=== PATIENT | male | born 1995 | race Caucasian/White ===

== ENCOUNTER 2019-04-30 20:37 | Emergency (ER) | payer OTHER, SELFPAY ==
[2019-04-30 20:38] VITALS: BP 156/85; PULSE 94; RESP 18; TEMP 36.7; O2SAT 97; BMI 37.5
--- NOTE | 2019-04-30 21:33 | ED.VISSUMM ---
- ER Visit Summary Date of Service: 04/30/19 Chief Complaint: Right ear pain History of Present Illness: The patient is a 23 M who presents with right ear pain that began today. Patient states the pain began rather suddenly this morning. Patient states pain is been constant throughout the day. Patient describes pain as stabbing, throbbing, and burning. Patient states nothing makes the pain better or worse. Patient states he has also had a nonproductive cough. Patient states he has had some nausea and diarrhea today. Patient denies any vomiting. Patient denies any chest pain or shortness of breath. Patient states he saw his primary care physician 2 days ago and was diagnosed with throat ulcers. Patient states he still has a sore throat. Patient did not have ear pain when he saw his primary care physician. Physical Examination: Vital signs are stable. Patient is afebrile. Patient is in no acute distress. Oral mucosa is pink and moist. Oropharynx is clear. The right tympanic membrane is erythematous. The left tympanic membrane is clear. Neck is supple. Trachea is midline. There is no JVD or lymphadenopathy noted. Heart was regular rate and rhythm. Lungs are clear and equal bilaterally. Cranial nerves II through XII are intact. There are no focal motor or sensory deficits noted. Emergency Department Course and Treatment: Patient was given a prescription for amoxicillin. Patient was instructed to follow-up with his primary care physician in 5 to 7 days. Patient was instructed to take Tylenol or ibuprofen as needed for pain. Patient understood and was agreeable with the plan. All questions were answered. Disposition: Discharge home Impression: Right otitis media This note was generated with [employer] dictation software. It may contain incorrect words, spelling, and punctuation that were not noted in review of the chart prior to signing ED Disposition - Plan for ED Patient: Disposition: Home or Assisted Living Diagnosis: Right acute otitis media Instructions: ED Otitis Media Acute Adult Prescriptions: Amoxicillin 500 mg PO TID #30 tab Referrals: NOT,DEFINED [Primary Care Provider] - 5-7 Days
--- NOTE | 2019-04-30 21:36 | ED.DCSUM_ITS ---
- ER Visit Summary Date of Service: 04/30/19 Chief Complaint: Right ear pain History of Present Illness: The patient is a 23 M who presents with right ear pain that began today. Patient states the pain began rather suddenly this morning. Patient states pain is been constant throughout the day. Patient de scribes pain as stabbing, throbbing, and burning. Patient states nothing makes the pain better or worse. Patient states he has also had a nonproductive cough. Patient states he has had some nausea and diarrhea today. Patient denies any vomiting. Patient denies any chest pain or shortness of breath. Patient states he saw his primary care physician 2 days ago and was diagnosed with throat ulce rs. Patient states he still has a sore throat. Patient did not have ear pain when he saw his primary care physician. Physical Examination: Vital signs are stable. Patient is afebrile. Patient is in no acute distress. Oral mucosa is pink and moist. Oropharynx is clear. The right tympanic membrane is erythematous. The left tympanic membrane is clear. Neck is supple. Trachea is midline. There is no JVD or lymphadenopathy noted. Heart was regular rate and rhythm. Lungs are clear and equal bilaterally. Cranial nerves II through XII are intact. There are no focal motor or sensory deficits noted. Emergency Department Course and Treatment: Patient was given a prescription for amoxicillin. Patient was instructed to follow-up with his primary care physician in 5 to 7 days. Patient was instructed to take Tylenol or ibuprofen as needed for pain. Patient understood and was agreeable with the plan. All questions were answered. Disposition: Discharge home Impression: Right otitis media This note was generated with [employer] dictation software. It may contain incorrect words, spelling, and punctuation that were not noted in review of the chart prior to signing ED Disposition - Plan for ED Patient: Disposition: Home or Assisted Living Diagnosis: Right acute otitis media Instructions: ED Otitis Media Acute Adult Prescriptions: Amoxicillin 500 mg PO TID #30 tab Referrals: NOT,DEFINED [Primary Care Provider] - 5-7 Days
[2019-04-30] MEDS: Ibuprofen 400 MG Tablet 800 MG PO (21:40)
[2019-04-30] MEDS: AMOXICILLIN 500 MG CAPSULE PO (21:40)
== END 2019-04-30 21:50 | disposition home or self-care (01) ==
LOC: ED 21:47
PROVIDERS: Emergency Provider Emergency Medicine
DX: H66.91 Otitis media, unspecified, right ear (principal); R51 Headache; M54.2 Cervicalgia; R19.7 Diarrhea, unspecified; R05 Cough; J02.9 Acute pharyngitis, unspecified
CPT/HCPCS: 99283

== ENCOUNTER → 2021-08-21 10:47 | Outpatient (CLI) | payer OTHER, SELFPAY ==
[2021-08-21 12:17] LABS: Absolute Lymphocyte Count 3.54 X10^3/uL (0.83-4.51); Absolute Neutrophil Count 9.6 X10^3/uL (2.0-7.7); Basophil# 0.07 X10^3/uL; Basophil% 0.5 % (0-1); Eosinophil# 0.08 X10^3/uL; Eosinophils% 0.6 % (0-5); Hematocrit 40.9 % (40-54); Hemoglobin 12.5 g/dL (13.0-16.5); Lymphocyte # 3.54 X10^3/ul (0.83-4.51); Lymphocyte % 24.6 % (19-41); Mean Corp Hgb Conc 30.6 g/dL (32-36); Mean Corpuscular Hgb 19.3 pg (27.0-32.0); Monocyte# 0.96 X10^3/uL; Monocyte% 6.7 % (0-10); NRBC Flagged by Analyzer 0 % (0-5); Neutrophil # 9.59 X10^3/uL (2.7-7.7); Neutrophil % 66.6 % (47-70); Platelet Count 224 K/mm3 (150-450); RBC Distribution Width CV 17.2 % (11.6-14.6); RBC Distribution Width SD 33.5 fl (35.1-43.9); Red Blood Count 6.49 M/mm3 (4.6-6.2); White Blood Count 14.4 K/mm3 (4.4-11.0)
[2021-08-21 12:40] LABS: ALB/GLOB Ratio 1.1 RATIO (0.9-2.4); AST(SGOT) 19 U/L (15-37); Alanine Aminotransfer ALT/SGPT 58 U/L (16-61); Alkaline Phosphatase 73 U/L (45-117); Anion Gap 6 (5-15); BUN 14 mg/dL (7-18); BUN/Creat Ratio 18.4 RATIO (10-20); Calcium,Total 8.6 mg/dL (8.5-10.1); Chloride 105 mmol/L (98-107); Cholesterol 98 mg/dL (200); Creatinine, Serum 0.76 mg/dL (0.70-1.30); EST Glomerular Filtration Rate 130 mL/min (>60); Est Glom Filt Rate - Afr Amer 158 mL/min (>60); Globulin 3.5 g/dL (2.2-4.2); Glucose 127 mg/dL (74-106); High Density Lipoprotein 35 mg/dL; Potassium 4.3 mmol/L (3.5-5.1); Protein, Total 7.5 g/dL (6.4-8.2); Sodium Level 137 mmol/L (136-145); Thyroid Stim Hormone (TSH) 0.73 uIU/mL (0.358-3.74); Triglycerides 88 mg/dL; Very Low Density Lipoprotein 18 mg/dL (5-40)
[2021-08-22 15:20] LABS: Hemoglobin A1c 5.5 % (3.8-5.6)
[2021-08-22 17:04] LABS: Ferritin 592 ng/mL (26-388); Iron 87 ug/dL (65-175); Iron Binding Capacity,Total 212 ug/dL (250-450)
[2021-08-22 17:13] LABS: Vitamin B12 510 pg/mL (211-911)
[2021-08-25 13:58] LABS: Pathologist Review Reviewed
== END ==
PROVIDERS: PCP Family Medicine; Referring Provider Family Medicine; Visit Provider Family Medicine
DX: Z00.00 Encounter for general adult medical examination without abnormal findings (principal); D50.9 Iron deficiency anemia, unspecified; R73.09 Other abnormal glucose; D72.829 Elevated white blood cell count, unspecified; E66.9 Obesity, unspecified
CPT/HCPCS: 36415; 80053; 80061; 82607; 82728; 83036; 83540; 83550; 84443; 85025

== ENCOUNTER 2021-09-12 14:35 | Emergency (ER) | payer OTHER, SELFPAY ==
[2021-09-12] VITALS (11 sets, daily range): BP systolic 134–156; BP diastolic 84–106; PULSE 111–119; RESP 16–47; TEMP 36.9–39.5; O2SAT 88–97; BMI 38.0
--- NOTE | 2021-09-12 16:05 | RAD_ITS ---
STUDY: X-RAY CHEST REASON FOR EXAM: Male, 25 years old. Cough TECHNIQUE: Frontal view COMPARISON: None. FINDINGS: The lungs are not fully expanded. Bilateral patchy infiltrates. Normal size heart. Normal mediastinum and stacey. Normal visualized pulmonary arteries. Normal visualized aortic arch and descending thoracic aorta. Normal visualized thoracic spine. Normal visualized ribs, clavicles, and shoulders. There is no demonstrated abnormality of the visualized soft tissue structures of the upper abdomen. RAD/Chest 1 View (Portable) IMPRESSION: Bilateral patchy infiltrates. Electronically Signed: Jonas Chiu DO at 20:55 EDT Tel [phone], Service support ,
--- NOTE | 2021-09-12 16:05 | EKG12_ITS ---
Test Reason : SOB Blood Pressure : / mmHG Vent. Rate : 118 BPM Atrial Rate : 118 BPM P-R Int : 146 ms QRS Dur : 084 ms QT Int : 300 ms P-R-T Axes : 014 007 007 degrees QTc Int : 420 ms Sinus tachycardia Otherwise normal ECG Confirmed by CURT HERNANDEZ, CHIP ([id number]), assignment desk editor PINA GREEN ([id number]) on 09/16/2021 8:40:35 AM Referred By: YASH Confirmed By:CHIP ELIAS MD
--- NOTE | 2021-09-12 16:06 | CT_ITS ---
STUDY: CTA CHEST REASON FOR EXAM: Male, 25 years old. Hypoxia and Covid RADIATION DOSAGE (If Supplied By Facility): CTDIvol = ( 12.66 ) mGy, DLP = ( 426.16 ) mGycm TECHNIQUE: The examination was performed with the intravenous administration of IV 100mL Isovue-370. Post-processing of the angiographic images was performed, with multiplanar reformation and 3D reconstruction. Individualized dose optimization techniques were used for this CT. COMPARISON: None. FINDINGS: Examination is technically limited due to suboptimal enhancement of the pulmonary artery and elevated image noise obscuring details of smaller arteries. There is no large pulmonary embolism in the main, right or left pulmonary arteries. Lobar and segmental arteries are not evaluable. There is extensive multifocal viral pneumonia with nodular and regional ground glass opacities. Pulmonary volumes are very low. There is no pneumothorax, pulmonary edema or pleural effusions. Mediastinal contents are normal. Osseous structures are intact. Liver is enlarged and fatty infiltrated. Spleen is at least moderately enlarged. However, abdominal structures are incompletely visualized. CT/CTA Chest W/WO Contrast IMPRESSION: 1. Technically limited study. 2. No large central pulmonary embolism. 3. Recommend ultrasonography of the lower extremity venous system for further risk stratification. If lower activity veins are free of DVT repeat chest imaging is optional. 4. Severe Covid pneumonia. 5. Hepatosplenomegaly and hepatic steatosis. General medical/laboratory evaluation advised. This does not require dedicated imaging. Electronically Signed: Sonya Santiago MD at 17:58 EDT Tel , Service support ,
--- NOTE | 2021-09-12 16:07 | EDS_ITS ---
HPI History of Present Illness Chief Complaint: Shortness of Breath Narrative Narrative: 25-year-old male with no reported medical problems presenting on day 7 of COVID-19 symptoms. He reports a fever as high as 102 which responds to Tylenol and ibuprofen. He has body aches and chills. Intermittently he is having nausea and diarrhea. Patient was initially referred for monoclonal antibodies however now he notes that his O2 sats are 89% at home. He states he was taking too long to get set up via his primary care physician and [facility] where he tested positive the other day. Patient describes a lot of dyspnea on exertion as well. He does not have alden chest pain. PFSH PFSH Medical History no medical history Home Medications dexamethasone [Decadron] 6 mg PO DAILY #7 tab 09/12/21 [Rx Last Taken Unknown] ondansetron 4 mg PO Q8H PRN PRN #20 tab 09/12/21 [Rx Last Taken Unknown] Allergy/AdvReac Type Severity Reaction Status Date / Time No Known Allergies Allergy Verified 09/12/21 14:37 Social History Smoking Status: Unknown if ever smoked ROS ROS ED Constitutional Constitutional ED: Reports chills and fever(s) Eyes Eyes: Denies blurry vision or diplopia ENT ENT ED: Denies rhinorrhea or sore throat Cardiovascular Cardiovascular: Reports palpitations and racing heartbeat Respiratory/Chest Respiratory/Chest: Reports cough, dyspnea and dyspnea on exertion Gastrointestinal Gastrointestinal: Reports diarrhea and nausea; Denies abdominal pain Genitourinary Genitourinary ED: Denies dysuria or hematuria Musculoskeletal Musculoskeletal: Reports myalgias; Denies arthralgias or neck pain Integumentary Denies Abrasions or rash Neurologic Neurologic: Denies headache(s) or paresthesias EXAM Physical Exam Const Vital Signs: 09/12/21 14:37 09/12/21 15:41 09/12/21 15:43 Temperature 98.4 F Temperature Source Temporal Pulse Rate 113 H Respiratory Rate 18 Respiratory Effort Blood Pressure 150/85 H Blood Pressure Mean 106 Pulse Ox 94 92 94 Oxygen Delivery Method Room Air Room Air Room Air Oxygen Flow Rate (L/min) 09/12/21 15:46 09/12/21 15:47 09/12/21 16:03 Temperature 98.9 F Temperature Source Temporal Pulse Rate 114 H Respiratory Rate 47 H Respiratory Effort Short of Breath Labored Blood Pressure 156/106 H Blood Pressure Mean 122 Pulse Ox 94 88 Oxygen Delivery Method Room Air Room Air Room Air Oxygen Flow Rate (L/min) 09/12/21 17:43 09/12/21 18:11 09/12/21 18:47 Temperature 103.1 F H 100 F H Temperature Source Oral Oral Pulse Rate 119 H 115 H Respiratory Rate 30 H 17 Respiratory Effort Blood Pressure 139/95 H 143/89 H 134/93 H Blood Pressure Mean 109 107 106 Pulse Ox 93 92 Oxygen Delivery Method Nasal Cannula Nasal Cannula Oxygen Flow Rate (L/min) 2 2 09/12/21 19:06 Temperature 100 F H Temperature Source Oral Pulse Rate 111 H Respiratory Rate 16 Respiratory Effort Blood Pressure 138/84 H Blood Pressure Mean 102 Pulse Ox 93 Oxygen Delivery Method Nasal Cannula Oxygen Flow Rate (L/min) 2 Positive well nourished General Appearance ED: NAD; Negative for pallor HEENT Reports moist mucous membranes atraumatic Eyes PERRL and EOMs intact bilaterally General Eye ED: Negative for scleral icterus Neck supple Resp normal respiratory effort and clear to auscultation bilaterally GI non-tender and non-distended Auscultation: normoactive bowel sounds Palpation: soft Neuro oriented x3, CN's II-XII intact bilaterally and no sensory deficits noted Sensorium / Orientation: alert Motor Exam: strength 5/5 throughout Psych mental status grossly normal Thought Process: normal thought process Skin General Skin Exam: Negative for jaundice or pallor MDM MDM MDM Narrative Medical decision making narrative: Patient arriving on day 7 of COVID-19 symptoms. He noted that he was 89% home. Here he is 88 to 94% on room air. I did get him up and ambulate him at the bedside and he maintain a sat of 88% for about 1 minute. He was very dyspneic. When he sat down he was very briefly 85% and then his O2 saturations came back up to 91-93. He denies any chest pain with this episode. Will obtain blood work and imaging as well as EKG. I suspect that likely the patient will ultimately be discharged home with oxygen. Patient was given dexamethasone and Zofran. Patient has no leukocytosis. Renal function electrolytes are normal. LFTs are normal. Lactic acid is 2. Chest x- ray on my interpretation shows bilateral pulmonary infiltrates and the radiologist does agree. EKG is sinus tachycardia with a ventricular rate of 118 bpm without sign of ischemic change on my interpretation. Patient ambulated on 2 L of oxygen and maintained O2 saturations in the mid 90s. Chest CTA does not show any central pulmonary emboli but is nondiagnostic laterally. Given the patient does not have any calf pain or swelling and does not have any chest pain I feel like peripheral pulmonary emboli are unlikely. Radiologist does read the severe Covid pneumonia. Since patient is ambulatory with good pulse oximeter readings I feel he is stable to be discharged home. Patient will monitor his pulse ox at home. He was given a prescription for dexamethasone. I had a discussion at length with him signs and symptoms which warrant return to the ED. Impression: 1. COVID-19 pneumonitis 2. Hypoxic respiratory failure Lab Data Labs: Laboratory Results - last 24 hr 09/12/21 09/12/21 09/12/21 16:20 16:20 16:45 WBC 10.1 RBC 6.59 H Hgb 12.5 L Hct 39.9 L MCV 60.5 L MCH 19.0 L MCHC 31.3 L RDW Std Deviation 31.5 L RDW Coeff of Carlos Alberto 16.1 H Plt Count 121 L Immature Gran % (Auto) 0.800 Neut % (Auto) 79.3 H Lymph % (Auto) 12.8 L [place] % (Auto) 6.8 Eos % (Auto) 0.2 Baso % (Auto) 0.1 Absolute Neuts (auto) 8.0 H Absolute Lymphs (auto) 1.29 Nucleated RBC % 0 Platelet Estimate ADEQUATE RBC Morphology NORM C+C Sodium 132 L Potassium 4.1 Chloride 102 Carbon Dioxide 23.0 Anion Gap 7 BUN 13 Creatinine 0.84 Estim Creat Clear Calc 127.80 Est GFR (MDRD) Af Amer 139 Est GFR (MDRD) Non-Af 115 BUN/Creatinine Ratio 15.4 Glucose 135 H Lactic Acid 2.0 Calcium 8.6 Total Bilirubin 0.80 AST 33 ALT 22 Alkaline Phosphatase 48 Total Protein 7.8 Albumin 3.4 Globulin 4.4 H Albumin/Globulin Ratio 0.8 L Procalcitonin 09/12/21 16:45 WBC RBC Hgb Hct MCV MCH MCHC RDW Std Deviation RDW Coeff of Carlos Alberto Plt Count Immature Gran % (Auto) Neut % (Auto) Lymph % (Auto) [place] % (Auto) Eos % (Auto) Baso % (Auto) Absolute Neuts (auto) Absolute Lymphs (auto) Nucleated RBC % Platelet Estimate RBC Morphology Sodium Potassium Chloride Carbon Dioxide Anion Gap BUN Creatinine Estim Creat Clear Calc Est GFR (MDRD) Af Amer Est GFR (MDRD) Non-Af BUN/Creatinine Ratio Glucose Lactic Acid Calcium Total Bilirubin AST ALT Alkaline Phosphatase Total Protein Albumin Globulin Albumin/Globulin Ratio Procalcitonin 0.58 H Radiography Diagnostic Testing: Clinical Impression(s) from Imaging Studies Chest X-Ray 09/12/21 16:05 IMPRESSION: Bilateral patchy infiltrates. Electronically Signed: Jonas Chiu DO at 20:55 EDT Tel [phone], Service support , Chest CTA 09/12/21 16:06 IMPRESSION: 1. Technically limited study. 2. No large central pulmonary embolism. 3. Recommend ultrasonography of the lower extremity venous system for further risk stratification. If lower activity veins are free of DVT repeat chest imaging is optional. 4. Severe Covid pneumonia. 5. Hepatosplenomegaly and hepatic steatosis. General medical/laboratory evaluation advised. This does not require dedicated imaging. Electronically Signed: Sonya Santiago MD at 17:58 EDT Tel , Service support , Discharge Plan Triage Chief Complaint: Shortness of Breath ED Provider: Darian Mathew Dx/Rx/DC Orders Instructions: Coronavirus Disease 2019 (COVID-19): Caring for Yourself or Others Prescriptions: New dexamethasone [Decadron] 6 mg tablet 6 mg PO DAILY Qty: 7 RF: 0 ondansetron 4 mg tablet,disintegrating 4 mg PO Q8H PRN PRN (Reason: Nausea) Qty: 20 RF: 0 Primary Care Provider: Jonathan Reed Referrals: Jonathan Reed MD [Primary Care Provider] - Disposition Disposition: Home, Self Care Discharge Date/Time: 09/12/21 20:39
[2021-09-12 16:32] LABS: Absolute Lymphocyte Count 1.29 X10^3/uL (0.83-4.51); Basophil# 0.01 X10^3/uL; Basophil% 0.1 % (0-1); Eosinophil# 0.02 X10^3/uL; Eosinophils% 0.2 % (0-5); Hematocrit 39.9 % (40-54); Hemoglobin 12.5 g/dL (13.0-16.5); Lymphocyte # 1.29 X10^3/ul (0.83-4.51); Lymphocyte % 12.8 % (19-41); Mean Corp Hgb Conc 31.3 g/dL (32-36); Mean Corpuscular Volume 60.5 fL (80-94); Monocyte# 0.69 X10^3/uL; Monocyte% 6.8 % (0-10); NRBC Flagged by Analyzer 0 % (0-5); Neutrophil # 7.99 X10^3/uL (2.7-7.7); Neutrophil % 79.3 % (47-70); POSITIVE COUNT YES; Platelet Count 121 K/mm3 (150-450); RBC Distribution Width CV 16.1 % (11.6-14.6); RBC Distribution Width SD 31.5 fl (35.1-43.9); Red Blood Count 6.59 M/mm3 (4.6-6.2); White Blood Count 10.1 K/mm3 (4.4-11.0)
[2021-09-12 16:33] LABS: Differential Indicated SCAN CRITERIA MET
[2021-09-12 16:53] LABS: Platelet Estimate ADEQUATE (ADEQ); Red Cell Morphology NORM C+C NORMAL (NORM C&C)
[2021-09-12] MEDS: dexAMETHasone 10 MG/ML Vial 6 MG IV (16:59)
[2021-09-12] MEDS: Ondansetron 4 MG/2 ML Vial IV (16:59)
[2021-09-12 17:02] LABS: ALB/GLOB Ratio 0.8 RATIO (0.9-2.4); AST(SGOT) 33 U/L (15-37); Alanine Aminotransfer ALT/SGPT 22 U/L (16-61); Albumin, Serum 3.4 g/dL (3.2-5.0); Alkaline Phosphatase 48 U/L (45-117); Anion Gap 7 (5-15); BUN 13 mg/dL (7-18); BUN/Creat Ratio 15.4 RATIO (10-20); Calcium,Total 8.6 mg/dL (8.5-10.1); Chloride 102 mmol/L (98-107); Creatinine, Serum 0.84 mg/dL (0.70-1.30); EST Glomerular Filtration Rate 115 mL/min (>60); Est Glom Filt Rate - Afr Amer 139 mL/min (>60); Globulin 4.4 g/dL (2.2-4.2); Glucose 135 mg/dL (74-106); Potassium 4.1 mmol/L (3.5-5.1); Protein, Total 7.8 g/dL (6.4-8.2); Sodium Level 132 mmol/L (136-145)
[2021-09-12 17:21] LABS: Procalcitonin 0.58 ng/mL (0.00-0.09)
[2021-09-12] MEDS: Acetaminophen 500 MG Tablet 1000 MG PO (17:52)
--- NOTE | 2021-09-12 20:08 | CM.ED ---
SOCIAL WORK Referral Source: Dr. Mathew Reason for Consult: COVID positive, requires home O2 Patient lives home with . Patient requires 2L O2 for home going. COVID positive test result obtained. Patient gave approval for O2 needs to be set up through [employer]. Patient reports has pulse ox at home. Call to [employer] after hours and faxed all required information to [employer]. RT notified to review O2 needs with patient. Case Management notified via e-mail for follow up. [facility] Quickscript added to chart for medical records. Plan: Home with home O2 Giovanna Mir MSW, CHILD SUPPORT AGENT
[2021-09-12 20:54] LABS: Reflex Lactate? Y
--- NOTE | 2021-09-15 11:00 | CASEMGMT ---
ED Home oxygen follow-up: Patient states he is having a rough time at times, continues to wear oxygen, running around 92-93% on the 2L. Patient taking meds as prescribed. Pt states he has an appt with his PCP tomorrow, . Encouraged the patient to keep his appt and discussed s/s to return to ER. Pt verbalized understanding. Patient had no further questions or concerns at this time.
== END 2021-09-12 20:39 | disposition home or self-care (01) ==
PROVIDERS: Emergency Provider Student in an Organized Health Care Education/Training Program; PCP Family Medicine
DX: U07.1 COVID-19 (principal); J12.82 Pneumonia due to coronavirus disease 2019; K76.0 Fatty (change of) liver, not elsewhere classified; J96.91 Respiratory failure, unspecified with hypoxia; Z79.52 Long term (current) use of systemic steroids
CPT/HCPCS: 71045; 71275; 80053; 83605; 84145; 85025; 87040; 87149; 87426; 93005; 96374; 96375; 99285; Q9967; A4216; J2405

== ENCOUNTER → 2021-09-26 12:01 | Outpatient (CLI) | payer OTHER, SELFPAY ==
--- NOTE | 2021-09-26 12:05 | RAD_ITS ---
STUDY: X-RAY CHEST REASON FOR EXAM: Male, 25 years old. COVID19 TECHNIQUE: PA and lateral views of the chest. COMPARISON: 09/12/2021 FINDINGS: EKG leads project over the chest. Multilobar pulmonary infiltrates evident on the prior CT have largely resolved. There is no demonstrated pleural abnormality. Normal size heart. Normal mediastinum and stacey. Normal visualized pulmonary arteries. Normal visualized aortic arch and descending thoracic aorta. Normal visualized thoracic spine. Normal visualized ribs, clavicles, and shoulders. There is no demonstrated abnormality of the visualized soft tissue structures of the upper abdomen. RAD/Chest PA and Lateral IMPRESSION: Near-complete resolution of multilobar infiltrates. Electronically Signed: Mau Vila MD (Brooks) at 16:21 EDT , Service support ,
== END ==
PROVIDERS: PCP Family Medicine; Referring Provider Family Medicine; Visit Provider Family Medicine
DX: U07.1 COVID-19 (principal)
CPT/HCPCS: 71046

== ENCOUNTER 2022-08-21 16:04 | Outpatient (CLI) | payer OTHER, SELFPAY ==
[2022-08-21 18:01] LABS: Absolute Lymphocyte Count 2.98 X10^3/uL (0.83-4.51); Absolute Neutrophil Count 10.9 X10^3/uL (2.0-7.7); Basophil# 0.09 X10^3/uL; Basophil% 0.6 % (0-1); Eosinophil# 0.04 X10^3/uL; Eosinophils% 0.3 % (0-5); Hematocrit 40.7 % (40-54); Hemoglobin 12.5 g/dL (13.0-16.5); Lymphocyte # 2.98 X10^3/ul (0.83-4.51); Lymphocyte % 19.9 % (19-41); Mean Corp Hgb Conc 30.7 g/dL (32-36); Mean Corpuscular Hgb 19.4 pg (27.0-32.0); Mean Corpuscular Volume 63.3 fL (80-94); Monocyte# 0.91 X10^3/uL; Monocyte% 6.1 % (0-10); NRBC Flagged by Analyzer 0.1 % (0-5); Neutrophil # 10.89 X10^3/uL (2.7-7.7); Neutrophil % 72.5 % (47-70); Platelet Count 220 K/mm3 (150-450); RBC Distribution Width CV 17.6 % (11.6-14.6); RBC Distribution Width SD 34.5 fl (35.1-43.9); Red Blood Count 6.43 M/mm3 (4.6-6.2)
[2022-08-21 18:22] LABS: Vitamin B12 393 pg/mL (211-911)
[2022-08-21 18:53] LABS: Hemoglobin A1c 5.3 % (3.8-5.6)
[2022-08-21 19:01] LABS: ALB/GLOB Ratio 1.5 RATIO (0.9-2.4); AST(SGOT) 31 U/L (15-37); Alanine Aminotransfer ALT/SGPT 57 U/L (16-61); Albumin, Serum 4.5 g/dL (3.2-5.0); Alkaline Phosphatase 63 U/L (45-117); Anion Gap 8 (5-15); BUN 13 mg/dL (7-18); BUN/Creat Ratio 16.3 RATIO (10-20); Calcium,Total 9.2 mg/dL (8.5-10.1); Chloride 104 mmol/L (98-107); Cholesterol 107 mg/dL (200); EST Glomerular Filtration Rate 122 mL/min (>60); Est Glom Filt Rate - Afr Amer 148 mL/min (>60); Ferritin 484 ng/mL (26-388); Globulin 3.1 g/dL (2.2-4.2); Glucose 77 mg/dL (74-106); High Density Lipoprotein 32 mg/dL; Iron 63 ug/dL (65-175); Iron Binding Capacity,Total 222 ug/dL (250-450); Potassium 3.8 mmol/L (3.5-5.1); Protein, Total 7.6 g/dL (6.4-8.2); Sodium Level 139 mmol/L (136-145); Triglycerides 64 mg/dL; Very Low Density Lipoprotein 13 mg/dL (5-40)
== END 2022-08-21 23:59 | disposition home or self-care (01) ==
LOC: MFPLAB 16:07
PROVIDERS: PCP Family Medicine; Referring Provider Family Medicine; Visit Provider Family Medicine
DX: Z00.00 Encounter for general adult medical examination without abnormal findings (principal)
CPT/HCPCS: 36415; 80053; 80061; 82607; 82728; 82746; 83036; 83540; 83550; 85025

== ENCOUNTER 2022-08-27 09:58 | Outpatient (CLI) | payer OTHER, SELFPAY ==
[2022-08-27 15:32] LABS: Absolute Lymphocyte Count 2.76 X10^3/uL (0.83-4.51); Absolute Neutrophil Count 6.9 X10^3/uL (2.0-7.7); Basophil# 0.07 X10^3/uL; Basophil% 0.7 % (0-1); Eosinophil# 0.15 X10^3/uL; Eosinophils% 1.4 % (0-5); Hematocrit 40.8 % (40-54); Hemoglobin 12.2 g/dL (13.0-16.5); Lymphocyte # 2.76 X10^3/ul (0.83-4.51); Lymphocyte % 25.8 % (19-41); Mean Corp Hgb Conc 29.9 g/dL (32-36); Mean Corpuscular Hgb 19.2 pg (27.0-32.0); Mean Corpuscular Volume 64.2 fL (80-94); Monocyte# 0.78 X10^3/uL; Monocyte% 7.3 % (0-10); NRBC Flagged by Analyzer 0.2 % (0-5); Neutrophil # 6.88 X10^3/uL (2.7-7.7); Neutrophil % 64.1 % (47-70); Platelet Count 214 K/mm3 (150-450); RBC Distribution Width CV 17.9 % (11.6-14.6); RBC Distribution Width SD 35.4 fl (35.1-43.9); Red Blood Count 6.36 M/mm3 (4.6-6.2); White Blood Count 10.7 K/mm3 (4.4-11.0)
[2022-08-27 15:35] LABS: Differential Indicated SCAN CRITERIA MET
[2022-08-27 15:51] LABS: Differential Comment SCANNED
[2022-08-28 13:12] LABS: Pathologist Review Reviewed
== END 2022-08-27 23:59 | disposition home or self-care (01) ==
PROVIDERS: PCP Family Medicine; Referring Provider Family Medicine; Visit Provider Family Medicine
DX: Z00.00 Encounter for general adult medical examination without abnormal findings (principal)
CPT/HCPCS: 36415; 83021; 85025; 85660

== ENCOUNTER → 2023-02-17 | Outpatient (CLI) | payer OTHER, SELFPAY ==
[2023-02-17 12:27] LABS: Absolute Lymphocyte Count 2.62 X10^3/uL (0.83-4.51); Absolute Neutrophil Count 7.8 X10^3/uL (2.0-7.7); Basophil# 0.07 X10^3/uL; Basophil% 0.6 % (0-1); Eosinophil# 0.11 X10^3/uL; Hematocrit 41.7 % (40-54); Hemoglobin 12.4 g/dL (13.0-16.5); Lymphocyte # 2.62 X10^3/ul (0.83-4.51); Lymphocyte % 22.8 % (19-41); Mean Corp Hgb Conc 29.7 g/dL (32-36); Mean Corpuscular Volume 64.1 fL (80-94); Monocyte# 0.81 X10^3/uL; NRBC Flagged by Analyzer 0.2 % (0-5); Neutrophil # 7.81 X10^3/uL (2.7-7.7); Neutrophil % 67.9 % (47-70); Platelet Count 192 K/mm3 (150-450); RBC Distribution Width CV 17.9 % (11.6-14.6); RBC Distribution Width SD 35.3 fl (35.1-43.9); Red Blood Count 6.51 M/mm3 (4.6-6.2); White Blood Count 11.5 K/mm3 (4.4-11.0)
[2023-02-17 12:51] LABS: ALB/GLOB Ratio 1.5 RATIO (0.9-2.4); AST(SGOT) 11 U/L (15-37); Alanine Aminotransfer ALT/SGPT 34 U/L (16-61); Albumin, Serum 4.2 g/dL (3.2-5.0); Alkaline Phosphatase 55 U/L (45-117); Anion Gap 6 (5-15); BUN 18 mg/dL (7-18); BUN/Creat Ratio 24.7 RATIO (10-20); Calcium,Total 9.5 mg/dL (8.5-10.1); Chloride 110 mmol/L (98-107); Cholesterol 92 mg/dL (200); Creatinine, Serum 0.73 mg/dL (0.70-1.30); EST Glomerular Filtration Rate 135 mL/min (>60); Est Glom Filt Rate - Afr Amer 164 mL/min (>60); Globulin 2.8 g/dL (2.2-4.2); Glucose 93 mg/dL (74-106); High Density Lipoprotein 35 mg/dL; Magnesium 2.3 mg/dL (1.6-2.6); Potassium 4.4 mmol/L (3.5-5.1); Sodium Level 144 mmol/L (136-145); Triglycerides 59 mg/dL; Very Low Density Lipoprotein 12 mg/dL (5-40)
[2023-02-18 16:10] LABS: Endomysial Antibody IgA Negative (Negative)
[2023-02-18 20:24] LABS: Immunoglobulin A 140 mg/dL (90-386); t-Transglutaminase IgA <2 U/mL (0-3)
== END | disposition home or self-care (01) ==
LOC: MFPLAB 09:32
PROVIDERS: PCP Family Medicine; Referring Provider Family Medicine; Visit Provider Family Medicine
DX: D56.3 Thalassemia minor (principal); E66.9 Obesity, unspecified; R19.7 Diarrhea, unspecified
CPT/HCPCS: 36415; 80053; 80061; 82784; 83516; 83735; 85025; 86255

== ENCOUNTER 2023-08-17 09:25 | Outpatient (CLI) | payer OTHER, SELFPAY ==
--- OUTSIDE RECORDS SUMMARY | 2023-08-17 09:56 | XMS RPT_ITS | CCD ---
Author Name Unknown Address [address] [place] [id number] Organization [facility] Care Team Providers Care Athletic Scout Name Role Phone PROVIDER, UNKNOWN Unavailable Unavailable PROVIDER, UNKNOWN Unavailable Unavailable YAAKOV ACUNA Unavailable Unavailable PROVIDER, UNKNOWN Unavailable Unavailable PROVIDER, UNKNOWN Unavailable Unavailable ED WILLIS) Unavailable Unavailabl e Problems Problem Classification Problem Date Documented Da te Episodic/Chronic Other lower respiratory disease (1 source) Cough; Translations: [Cough] Onset: 08-17-2018 Episodic Results Test Name Value Interpretation Reference Range Facil ity Encounters Encounter Date Encounter Type Care Provider Facility Start: 08-17-2018 End: 08-18-2018 Patient encounter ED DORSEY) LAZARO [facility] Start: 09-13-2017 End: 09-13-2017 Ambulatory UNKNOWN PROVIDER Facility:[facility] Start: 08-16-2017 End: 08-16-2017 Ambulatory UNKNOWN PROVIDER Facility:[facility] Payers Date Payer Category Payer Unknown [id number] Summary Purpose Family History No Family History Records FoundNo Family History Records FoundNo Family History Records Found Advance Directives No Advanced Directives Records FoundNo Advanced Directives Records FoundNo Advanced Directives Records Found Additional Source Comments (unrecognized sect ion and content) No Status Records FoundNo Status Records FoundNo Status Records Found INFORMATION SOURCE (unrecogn ized section and content) DATE CREATED AUTHOR AUTHOR'S ORGANIZ ATION 09/14/2018 [facility] DATE CREATED AUTHOR AUTHOR'S ORGANIZ ATION 09/25/2018 [employer] FOR RECORDS PERTAINING TO PATIENTS WHO ARE OR HAVE BEEN ENROLLED IN A CHEMICAL DEPENDENCY/SUBSTANCEABUSE PROGRAM, SOME INFORMATION MAY BE OMITTED. This clinical summary was aggregated from multiple sources. Caution should be exercised in using it in the provision of clinical care. This summary normalizes information from multiple sources, and as a consequence, information in this document may materially change the coding, format and clinical context of patient data. In addition, data may be omitted in some cases. CLINICAL DECISIONS SHOULD BE BASED ON THE PRIMARY CLINICAL RECORDS. [facility] [employer] [facility]. provides no warranty or guarantee of the accuracy or completeness of information in this document.
[2023-08-17 12:20] LABS: Absolute Lymphocyte Count 3.36 X10^3/uL (0.83-4.51); Absolute Neutrophil Count 7.5 X10^3/uL (2.0-7.7); Basophil# 0.07 X10^3/uL; Basophil% 0.6 % (0-1); Eosinophil# 0.12 X10^3/uL; Hematocrit 43.2 % (40-54); Hemoglobin 12.9 g/dL (13.0-16.5); Lymphocyte # 3.36 X10^3/ul (0.83-4.51); Lymphocyte % 27.8 % (19-41); Mean Corp Hgb Conc 29.9 g/dL (32-36); Mean Corpuscular Hgb 19.1 pg (27.0-32.0); Monocyte# 0.77 X10^3/uL; Monocyte% 6.4 % (0-10); NRBC Flagged by Analyzer 0 % (0-5); Neutrophil # 7.54 X10^3/uL (2.7-7.7); Neutrophil % 62.3 % (47-70); Platelet Count 198 K/mm3 (150-450); RBC Distribution Width CV 17.4 % (11.6-14.6); RBC Distribution Width SD 33.3 fl (35.1-43.9); Red Blood Count 6.75 M/mm3 (4.6-6.2); White Blood Count 12.1 K/mm3 (4.4-11.0)
[2023-08-17 12:39] LABS: ALB/GLOB Ratio 1.3 RATIO (0.9-2.4); AST(SGOT) 13 U/L (15-37); Alanine Aminotransfer ALT/SGPT 48 U/L (16-61); Albumin, Serum 4.1 g/dL (3.2-5.0); Alkaline Phosphatase 65 U/L (45-117); Anion Gap 4 (5-15); BUN 15 mg/dL (7-18); BUN/Creat Ratio 17.8 RATIO (10-20); Calcium,Total 8.5 mg/dL (8.5-10.1); Chloride 108 mmol/L (98-107); Cholesterol 113 mg/dL (200); Creatinine, Serum 0.84 mg/dL (0.70-1.30); EST Glomerular Filtration Rate 114 mL/min (>60); Est Glom Filt Rate - Afr Amer 138 mL/min (>60); Globulin 3.1 g/dL (2.2-4.2); Glucose 116 mg/dL (74-106); High Density Lipoprotein 39 mg/dL; Potassium 4.1 mmol/L (3.5-5.1); Protein, Total 7.2 g/dL (6.4-8.2); Sodium Level 139 mmol/L (136-145); Triglycerides 72 mg/dL; Very Low Density Lipoprotein 14 mg/dL (5-40)
[2023-08-18 09:45] LABS: Hemoglobin A1c 5.3 % (3.8-5.6)
== END 2023-08-17 23:59 | disposition home or self-care (01) ==
LOC: MFPLAB 09:27
PROVIDERS: PCP Family Medicine; Visit Provider Family Medicine
DX: Z00.00 Encounter for general adult medical examination without abnormal findings (principal); E66.9 Obesity, unspecified
CPT/HCPCS: 36415; 80053; 80061; 83036; 85025

== ENCOUNTER → 2025-02-08 | Outpatient (CLI) | payer BC, SELFPAY ==
[2025-02-08 10:33] LABS: Absolute Neutrophil Count 8.4 X10^3/uL (2.0-7.7); Basophil# 0.09 X10^3/uL; Basophil% 0.7 % (0-1); Eosinophil# 0.11 X10^3/uL; Eosinophils% 0.9 % (0-5); Hematocrit 37.2 % (40-54); Hemoglobin 11.6 g/dL (13.0-16.5); Lymphocyte % 24.4 % (19-41); Mean Corp Hgb Conc 31.2 g/dL (32-36); Mean Corpuscular Hgb 19.2 pg (27.0-32.0); Mean Corpuscular Volume 61.6 fL (80-94); Monocyte# 0.91 X10^3/uL; Monocyte% 7.2 % (0-10); NRBC Flagged by Analyzer 0 % (0-5); Neutrophil % 66.1 % (47-70); Platelet Count 202 K/mm3 (150-450); RBC Distribution Width CV 17.6 % (11.6-14.6); Red Blood Count 6.04 M/mm3 (4.6-6.2); White Blood Count 12.7 K/mm3 (4.4-11.0)
[2025-02-08 13:04] LABS: ALB/GLOB Ratio 1.8 RATIO (0.9-2.4); AST(SGOT) 17 U/L (<=37); Alanine Aminotransfer ALT/SGPT 23 U/L (<=46); Albumin, Serum 4.5 g/dL (3.5-5.0); Alkaline Phosphatase 63 U/L (40-129); Anion Gap 12 (5-15); BUN 16 mg/dL (4-19); BUN/Creat Ratio 18.8 RATIO (10-20); Calcium,Total 9.1 mg/dL (7.6-11.0); Carbon Dioxide 23.4 mmol/L (21.0-32.0); Chloride 104 mmol/L (98-108); Cholesterol 117 mg/dL (<=200); Creatinine, Serum 0.83 mg/dL (0.70-1.20); EST Glomerular Filtration Rate 120 (>60); Globulin 2.4 g/dL (2.2-4.2); Glucose 98 mg/dL (70-99); High Density Lipoprotein 37 mg/dL; Low Density Lipoprotein Calc. 70 mg/dL; Potassium 4.4 mmol/L (3.3-5.1); Sodium Level 139 mmol/L (133-145); Total Bilirubin 0.86 mg/dL (0.00-1.30); Triglycerides 51 mg/dL; Very Low Density Lipoprotein 10 mg/dL (5-40); cholesterol:hdl ratio screen 3.16
== END | disposition home or self-care (01) ==
LOC: MFPLAB 09:34
PROVIDERS: PCP Family Medicine; Referring Provider Family Medicine; Visit Provider Family Medicine
DX: E78.6 Lipoprotein deficiency (principal); D56.3 Thalassemia minor; K75.81 Nonalcoholic steatohepatitis (NASH)
CPT/HCPCS: 36415; 80053; 80061; 85025